=== PATIENT | male | born 1960 | race Caucasian/White ===

== ENCOUNTER 2018-04-22 11:50 | Emergency (ER) | payer BC ==
[2018-04-22 12:05] VITALS: RESP 18; TEMP 98
[2018-04-22 13:19] LABS: Albumin 4.2 g/dL (3.5-5.0); Basophils % (A) 0 %; Calcium 9.5 mg/dL (8.4-10.2); Eosinophils # (A) 0.2 k/uL (0-0.7); Eosinophils % (A) 2 %; HCT 48.2 % (39.0-53.0); HGB 15.6 gm/dL (13.0-17.5); Lymphocytes # (A) 1.9 k/uL (1.0-4.8); Lymphocytes % (A) 22 %; MCHC 32.3 g/dL (31.0-37.0); MCV 86.5 fL (80.0-100.0); Mean Platelet Volume 7.1; Monocytes # (A) 0.9 k/uL (0-1.0); Monocytes % (A) 10 %; Neutrophils # (A) 5.4 k/uL (1.3-7.7); Neutrophils % (A) 63 %; Platelet Count 256 k/uL (150-450); Potassium 4.5 mmol/L (3.5-5.1); RBC 5.56 m/uL (4.30-5.90); RDW 13.5 % (11.5-15.5); Total Bilirubin 0.6 mg/dL (0.2-1.3); Total Protein 7.7 g/dL (6.3-8.2); WBC 8.6 k/uL (3.8-10.6)
--- NOTE | 2018-04-22 13:49 | ED ---
General Adult HPI - General Chief complaint: Extremity Problem,Nontraumatic Stated complaint: Numbness in feet Source: patient, RN notes reviewed, old records reviewed Mode of arrival: ambulatory Limitations: no limitations - History of Present Illness Initial comments: 57-year-old male patient with past medical history of hypertension, cholesterol presents in ED with 2 complaints. Patient has had a 15 year history of neuropathy in his feet bilaterally, has uncomfortable sensation of tingling today, would like continued evaluation and treatment of that. Patient has additional history of difficulty controlling bowels, this has been ongoing for approximately 2 years. Patient denies any back injury, back trauma throughout his lifetime. Patient is urinating without difficulty. Patient is ambulatory. Patient denies chest pain, shortness of breath, abdominal pain, fever or chills, nausea vomiting diarrhea. Systemic: Pt denies fatigue, myalgia, fever/chills, rash. Pt denies weakness, night sweats, weight loss. Neuro: Pt denies headache, visual disturbances, syncope or pre-syncope. HEENT: Pt denies ocular discharge or irritation, otalgia, rhinorrhea, pharyngitis or notable lymphadenopathy. Cardiopulmonary: Pt denies chest pain, SOB, heart palpitations, dyspnea on exertion. Abdominal/GI: Pt denies abdominal pain, n/v/d. : Pt denies dysuria, burning w/ urination, frequency/urgency. MSK: Pt denies myalgia, loss of strength or function in extremities. Neuro: Pt denies new onset weakness. - Related Data Allergies Allergy/AdvReac Type Severity Reaction Status Date / Time No Known Allergies Allergy Verified 04/22/18 12:00 Review of Systems ROS Statement: Those systems with pertinent positive or pertinent negative responses have been documented in the HPI. ROS Other: All systems not noted in ROS Statement are negative. Past Medical History Past Medical History: Diabetes Mellitus Additional Past Medical History / Comment(s): kidney disorder IGA, History of Any Multi-Drug Resistant Organisms: None Reported Past Surgical History: Hernia Repair Additional Past Surgical History / Comment(s): cracked knee Past Psychological History: No Psychological Hx Reported Smoking Status: Current every day smoker Past Alcohol Use History: Occasional Past Drug Use History: None Reported General Exam - General Exam Comments Initial Comments: Constitutional: NAD, AOX3, Pt has pleasant affect. HEENT: NC/AT, trachea midline, neck supple, no lymphadenopathy. Posterior pharynx non erythematous, without exudates. External ears appear normal, without discharge. Mucous membranes moist. Eyes PERRLA, EOM intact. There is no scleral icterus. No pallor noted. Cardiopulmonary: RRR, no murmurs, rubs or gallops, no JVD noted. Lungs CTAB in anterior and posterior mccann. No peripheral edema. Abdominal exam: Abdomen soft and non-distended. Abdomen non-tender to palpation in all 4 quadrants. Bowel sounds active in LLQ. No hepatosplenomegaly. No ecchymosis Neuro: CN II-XII intact. No focal deficit, no facial droop. No nuchal rigidity. Patient with further difficulty. MSK: Patient able to try, heel toe walking intact. Psoas and quadriceps strength 5 out of 5 bilaterally. 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 Achilles reflexes 2 out of 4 bilaterally. Sensation intact in lower extremities. Patient ambulatory without difficulty, heel to toe walking intact. Sensation intact of feet bilaterally. No posterior calf tenderness bilaterally, homans sign negative bilaterally. Posterior tibialis and radial pulse +2 bilaterally. Rectal exam conducted, patient had normal rectal tone. Limitations: no limitations Course Vital Signs 04/22/18 04/22/18 12:00 14:31 Temperature 98.0 F Pulse Rate 136 H 62 Respiratory 18 18 Rate Blood Pressure 99/59 131/75 O2 Sat by Pulse 98 100 Oximetry Medical Decision Making - Medical Decision Making [id number] male patient presents with 15 year history of neuropathy, 2 year history of waxing and waning bowel incontinence. Patient has not had any trauma to back. Patient physical in did not display acute pathology. Patient is ambulatory, patient he'll toe walking intact, patient fell out of 5 strength in psoas, quadriceps bilaterally. Rectal exam displayed good rectal tone. An EKG displayed normal sinus rhythm, no concerns for acute ischemia. Laboratory investigations including CBC, CMP, UA were nonimmpressive. Chest x-ray did not display any acute process. Explained to patient that these are chronic problems , there is low concern for any acute life-threatening pathology. Patient to follow with primary care physician in one to 2 days for continued evaluation of the symptoms. Patient given GI consult to contact tomorrow for bowel incontinence. Patient is in agreement with this plan. Patient to return to ED if any new signs or symptoms develop including worsening incontinence, urinary retention, back pain, paresthesias and legs, lower extremity weakness, new paresthesias, difficult breathing, chest pain, any other new symptoms. Case discussed with Dr. Monreal. - Lab Data Result diagrams: 04/22/18 12:52 04/22/18 12:52 Lab Results 04/22/18 04/22/18 04/22/18 Range/Units 12:52 12:52 14:34 WBC 8.6 (3.8-10.6) k/uL RBC 5.56 (4.30-5.90) m/uL Hgb 15.6 (13.0-17.5) gm/dL Hct 48.2 (39.0-53.0) % MCV 86.5 (80.0-100.0) fL MCH 28.0 (25.0-35.0) pg MCHC 32.3 (31.0-37.0) g/dL RDW 13.5 (11.5-15.5) % Plt Count 256 (150-450) k/uL Neutrophils % 63 % Lymphocytes % 22 % Monocytes % 10 % Eosinophils % 2 % Basophils % 0 % Neutrophils # 5.4 (1.3-7.7) k/uL Lymphocytes # 1.9 (1.0-4.8) k/uL Monocytes # 0.9 (0-1.0) k/uL Eosinophils # 0.2 (0-0.7) k/uL Basophils # 0.0 (0-0.2) k/uL Sodium 140 (137-145) mmol/L Potassium 4.5 (3.5-5.1) mmol/L Chloride 111 H (98-107) mmol/L Carbon Dioxide 20 L (22-30) mmol/L Anion Gap 9 mmol/L BUN 16 (9-20) mg/dL Creatinine 1.15 (0.66-1.25) mg/dL Est GFR (CKD-EPI)AfAm 83 (>60 ml/min/1.73 sqM) Est GFR (CKD-EPI)NonAf 72 (>60 ml/min/1.73 sqM) Glucose 89 (74-99) mg/dL Calcium 9.5 (8.4-10.2) mg/dL Total Bilirubin 0.6 (0.2-1.3) mg/dL AST 26 (17-59) U/L ALT 25 (21-72) U/L Alkaline Phosphatase 71 (38-126) U/L Total Protein 7.7 (6.3-8.2) g/dL Albumin 4.2 (3.5-5.0) g/dL Urine Color Yellow Urine Appearance Cloudy (Clear) Urine pH 5.5 (5.0-8.0) Ur Specific [place] 1.017 (1.001-1.035) Urine Protein Trace H (Negative) Urine Glucose (UA) Negative (Negative) Urine Ketones Negative (Negative) Urine Blood Negative (Negative) Urine Nitrite Negative (Negative) Urine Bilirubin Negative (Negative) Urine Urobilinogen <2.0 (<2.0) mg/dL Ur Leukocyte Esterase Negative (Negative) Urine RBC 2 (0-5) /hpf Urine WBC 11 H (0-5) /hpf Urine Bacteria Rare H (None) /hpf Hyaline Casts 7 H (0-2) /lpf Urine Mucus Occasional H (None) /hpf - EKG Data -: EKG Interpreted by Me EKG Comments: Ventricular rate 74,. Full 174, QRS 100, QT/QTC 380/427. Normal sinus rhythm and normal EKG. Disposition Clinical Impression: Neuropathy Disposition: HOME SELF-CARE Condition: Good Instructions: Peripheral Neuropathy (ED) Additional Instructions: Patient to adhere to previously discussed treatment plan and will take medication(s) as directed. Patient to follow up with PCP in 1-2 days. Patient to return to ED if symptoms do not improve. Is patient prescribed a controlled substance at d/c from ED?: No Referrals: Hannah Escobedo DO [Primary Care Provider] - 1-2 days Nandini Boone MD [STAFF PHYSICIAN] - 1-2 days Time of Disposition: 14:16
--- NOTE | 2018-04-22 14:10 | XR ---
EXAMINATION TYPE: XR chest 2V DATE OF EXAM: 04/22/2018 COMPARISON: NONE HISTORY: Neuropathy, pain TECHNIQUE: Frontal and lateral views of the chest are obtained. FINDINGS: There is no focal air space opacity, pleural effusion, or pneumothorax seen. The cardiac silhouette size is within normal limits. The osseous structures are intact. IMPRESSION: No acute cardiopulmonary process.
[2018-04-22 14:32] VITALS: BP 131/75; PULSE 62
[2018-04-22 15:06] LABS: Appearance,Urine Cloudy (Clear); Bacteria,Urine Rare /hpf; Bilirubin,Urine Negative (Negative); Blood,Urine Negative (Negative); Color,Urine Yellow; Glucose,Urine (UA) Negative (Negative); Hyaline Casts,Urine 7 /lpf (0-2); Ketones,Urine Negative (Negative); Leukocyte Esterase,Urine Negative (Negative); Mucus,Urine Occasional /hpf; Nitrite,Urine Negative (Negative); PH, Urine 5.5 (5.0-8.0); Protein,Urine Trace (Negative); RBC,Urine 2 /hpf (0-5); Specific Gravity,Urine 1.017 (1.001-1.035); Urobilinogen,Urine <2.0 mg/dL (<2.0)
== END 2018-04-22 15:25 | disposition home or self-care (01) ==
LOC: EC 11:50
DX: E11.40 Type 2 diabetes mellitus with diabetic neuropathy, unspecified (principal); F17.200 Nicotine dependence, unspecified, uncomplicated
CPT/HCPCS: 36415; 71046; 80053; 81001; 85025; 87086; 93005; 99284